=== PATIENT | female | born 1985 | race Asian ===

== ENCOUNTER 2022-07-30 13:01 | Emergency (ER) | payer OTHER, SELFPAY ==
--- NOTE | 2022-07-30 13:04 | DI.RAD.S_ITS ---
PROCEDURE: XR ANKLE RT MIN 3V INDICATIONS: fall TECHNIQUE: 3 views of the ankle were acquired. COMPARISON: None. FINDINGS: Bones: No acute fractures or dislocations. Remote appearing irregularity can be seen involving the medial malleolus. Ankle mortise is normally aligned. No suspicious bony lesions. The talar dome demonstrates no ofe abnormality. Soft tissues: No tibiotalar joint effusion. Achilles tendon appears normal. IMPRESSION: No acute fracture can be seen. Remote appearing irregularity seen involving the medial malleolus, which is attributed to a remote fracture. Dictated by: Anant Solomon M.D. on 07/30/2022 at 12:36 Approved by: Anant Solomon M.D. on 07/30/2022 at 12:36
[2022-07-30 13:26] VITALS: BP 142/90; PULSE 88; RESP 16; TEMP 36.6; O2SAT 99; BMI 29.2
[2022-07-30] MEDS: ACETAMINOPHEN 325 MG TABLET 975 MG PO (13:57)
--- NOTE | 2022-07-30 13:57 | ED.LOWEXIN ---
HPI - Extremity Injury (Lower) <FERCHO Thakur - Last Filed: 07/30/22 14:10> General Chief Complaint: Extremity Injury, Lower Stated Complaint: rt ankle swelling, fall Time Seen by Provider: 07/30/22 13:43 Source: patient History of Present Illness HPI Narrative: This is a 29-year-old female presents to the emergency department complaining of right ankle swelling and pain after she rolled her ankle on a hike this morning. She takes 100 mg of labetalol b.i.d. for history of hypertension. Denies any other medications. Is not anticoagulated, denies any recent fever, chills or new altered sensation in her lower extremities. States it is painful to bear weight on, has swelling over the lateral aspect of her ankle. She denies any numbness or tingling. Related Data Allergies Allergy/AdvReac Type Severity Reaction Status Date / Time lisinopril Allergy Verified 07/30/22 13:39 nifedipine Allergy Verified 07/30/22 13:39 telmisartan [From Micardis] Allergy Verified 07/30/22 13:39 <Duglas Mandujano DO - Last Filed: 07/31/22 07:14> History of Present Illness HPI Narrative: This is a 37-year-old female presents to the emergency department complaining of right ankle swelling and pain after she rolled her ankle on a hike this morning. She takes 100 mg of labetalol b.i.d. for history of hypertension. Denies any other medications. Is not anticoagulated, denies any recent fever, chills or new altered sensation in her lower extremities. States it is painful to bear weight on, has swelling over the lateral aspect of her ankle. She denies any numbness or tingling. Review of Systems <FERCHO Thakur - Last Filed: 07/30/22 14:10> Review of Systems ROS Unobtainable: All systems reviewed & are unremarkable except as noted in HPI and below Exam <FERCHO Thakur - Last Filed: 07/30/22 14:10> Narrative Exam Narrative: Reviewed vitals signs and nursing notes. General: cooperative, comfortable, in no acute distress, well groomed MSK: moves all extremities, neurovascularly intact, no weakness, normal tone, right ankle with compression wrap on, this was removed, edema notable anterior to the lateral malleolus, no tenderness over medial or lateral malleolus, Achilles tendon, proximal 5th metatarsal, dorsiflexion and plantar extension intact without deficit, denies numbness or tingling, PT and DP pulses are 2+, brisk cap refill, no bony pain with axial load, no midfoot pain, no plantar ecchymosis or open wound Skin: brisk capillary refill, without pallor or erythema Neuro: normal speech and cognition, A&O x3, clear speech Psych: mental status is grossly normal, congruent mood, normal affect, pleasant and cooperative Initial Vital Signs Initial Vital Signs: Vital Signs Temperature 97.8 F 07/30/22 13:26 Pulse Rate 88 07/30/22 13:26 Respiratory Rate 16 07/30/22 13:26 Blood Pressure 142/90 H 07/30/22 13:26 Pulse Oximetry 99 07/30/22 13:26 Oxygen Delivery Method 07/30/22 13:26 <Duglas Mandujano DO - Last Filed: 07/31/22 07:14> Initial Vital Signs Initial Vital Signs: Vital Signs Temperature 97.8 F 07/30/22 13:26 Pulse Rate 88 07/30/22 13:26 Respiratory Rate 16 07/30/22 13:26 Blood Pressure 142/90 H 07/30/22 13:26 Pulse Oximetry 99 07/30/22 13:26 Oxygen Delivery Method 07/30/22 13:26 Procedures <FERCHO Thakur - Last Filed: 07/30/22 14:10> Orthopedic Splinting/Casting Injury #1: Side: right Lower Extremity Injury Location: ankle Lower Extremity Immobilizer: boot orthosis Post splinting neuro exam: intact and no change Post splinting vascular exam: no change Placed by: Nursing Course <FERCHO Thakur - Last Filed: 07/30/22 14:10> Orders Ordered: Discontinued Medications Acetaminophen (Acetaminophen 325 Mg Tablet) 975 mg PO NOW ONE Stop: 07/30/22 13:51 Last Admin: 07/30/22 13:57 Dose: 975 mg Documented By: ARELI Ibuprofen (Ibuprofen 400 Mg Tablet) 800 mg PO NOW ONE Stop: 07/30/22 13:51 Last Admin: 07/30/22 13:58 Dose: 800 mg Documented By: ARELI Vital Signs Vital signs: Vital Signs - 8 hr 07/30/22 13:26 Temperature 97.8 F Pulse Rate 88 Respiratory Rate 16 Blood Pressure 142/90 H Pulse Oximetry 99 Oxygen Delivery Method Room Air <Duglas Mandujano DO - Last Filed: 07/31/22 07:14> Orders Ordered: Discontinued Medications Acetaminophen (Acetaminophen 325 Mg Tablet) 975 mg PO NOW ONE Stop: 07/30/22 13:51 Last Admin: 07/30/22 13:57 Dose: 975 mg Documented By: ARELI Ibuprofen (Ibuprofen 400 Mg Tablet) 800 mg PO NOW ONE Stop: 07/30/22 13:51 Last Admin: 07/30/22 13:58 Dose: 800 mg Documented By: ARELI Vital Signs Vital signs: Vital Signs - 8 hr 07/30/22 13:26 Temperature 97.8 F Pulse Rate 88 Respiratory Rate 16 Blood Pressure 142/90 H Pulse Oximetry 99 Oxygen Delivery Method Room Air MDM - Extremity Injury (Lower) <Jocelyn Herman [facility] - Last Filed: 07/30/22 14:10> Imaging Data Extremity x-ray #1: My Impression: Patient endorses 2 month ago injury to the medial aspect of her right ankle, she is mildly tender over the malleolus with palpation but states it is been consistently that way since she thinks she hurt her ankle much worse 2 months ago. Radiologist's Impression: PROCEDURE:? XR ANKLE RT MIN 3V ? INDICATIONS:? fall ? TECHNIQUE:? 3 views of the ankle were acquired.? ? COMPARISON:? None. ? FINDINGS:? ? Bones:? No acute fractures or dislocations.? Remote appearing irregularity can be seen involving the medial malleolus.? Ankle mortise is normally aligned.? No suspicious bony lesions.? The talar dome demonstrates no ofe abnormality.? ? Soft tissues:? No tibiotalar joint effusion.? Achilles tendon appears normal.? ? ? IMPRESSION:? No acute fracture can be seen. ? Remote appearing irregularity seen involving the medial malleolus, which is attributed to a remote fracture. ? ? ? Dictated by: Anant Solomon M.D. on 07/30/2022 at 12:36 ? ? Approved by: Anant Solomon M.D. on 07/30/2022 at 12:36 ? [facility] Narrative Medical decision making narrative: CC: Right ankle injury This is a 29-year-old female presents to the emergency department complaining of right ankle swelling and pain after she rolled her ankle on a hike this morning. Differential diagnoses include, but are not limited to: Ligamental injury, acute ankle fracture, joint effusion, metatarsal injury, I have reviewed the patient's vital signs and nursing notes as well as prior records if available. My imaging interpretation: Radiology reports states no acute fracture visualized on impression however there is a remote appearing irregularity seen involving the medial malleolus which is attributed to a remote fracture. Patient states she injured her right ankle on the medial aspect 2 months ago and was unable to ambulate on this. Today when she rolled her ankle her injury is on the lateral aspect and there are no acute fractures visualized where she is tender today. Patient was treated with Tylenol and ibuprofen, and an orthopedic walking boot. Patient's symptoms improved over duration of stay with above-stated therapies. Social considerations that may affect disposition: [facility] Shared decision making: Due to patient's remote injury 2 months ago, encouraged her to follow-up with [facility] for referral to Orthopedic for further evaluation, to stay in the walking boot as long she is ambulating, elevate it frequently, ice and take Tylenol and ibuprofen as needed for her pain. Patient is in agreement with this plan, she does not have any sensation changes, weakness, is able to ambulate without difficulty in her walking boot. Disposition: see below, along with detailed discharge instructions that have been reviewed with the patient as well as indications for ED re-evaluation and additional outpatient follow-up. Questions are addressed and there is agreement with the plan and for follow-up. Patient is appropriate for outpatient management. MIPS: This encounter doesn't have any diagnosis associated with MIPS criteria. I, FERCHO Saleh, personally performed the services described in the documentation, and it accurately records my words and actions. I collaborated with the ED attending physician for FENG level 2, 3, and some level 4s as appropriate. Discharge Plan Departure Patient Disposition: Home Clinical Impression: Ankle sprain and strain Instructions: Ankle Sprain Activity Restrictions/Additional Instructions: *You have been diagnosed with an ankle sprain without evidence of fracture or joint effusion on x-ray. Please use the walking boot as needed to bear weight on, elevate this as much as possible over the next 3-5 days to discourage swelling, may use an Gianfranco bandage or compression wrap like you have or compression sock to help mitigate edema. Take 600 mg of ibuprofen and 650 mg of Tylenol every 6 hours and ice this frequently today and tomorrow. Follow-up with [facility] if you have ongoing pain beyond 1-2 weeks. If you have persistent symptoms, please follow-up with [facility] for another evaluation. I hope this feels better soon. *What to do: *Please continue to take your regular medications as directed. [ ] New medication prescriptions sent to your pharmacy: [ ] [ ] New medication written as a paper prescription [x ] No new medications given *Please follow up with your primary care provider in 2-3 days, call for an appointment. Let them know you were seen in the Emergency Department and that we asked that you be seen for follow-up. We will electronically transmit a record of today's note if your PCP is in our system *If you do not have a primary care provider please contact [phone] to establish care with one of [facility] primary care providers. *Return to Emergency Department if you should have any new, worsening, or concerning symptoms, such as [fever greater than 101F, chills, worsening pain, persistent vomiting or other bothersome symptoms]. Referrals: [facility] [Provider Group] [facility] [Provider Group] [facility] [Provider Group] Stand Alone Forms: Patient Portal/API <Duglas Mandujano, - Last Filed: 07/31/22 07:14> [facility] ED Attending Suzanne Attestation: I was immediately available in the department for consultation. Documentation has been reviewed. I agree with assessment and plan.
[2022-07-30] MEDS: IBUPROFEN 400 MG TABLET 800 MG PO (13:58)
[2022-07-30 14:14] VITALS: BP 128/76; PULSE 85; RESP 18; O2SAT 98
== END 2022-07-30 14:15 | disposition home or self-care (01) ==
PROVIDERS: Emergency Provider Nurse Practitioner Critical Care Medicine
DX: S93.401A Sprain of unspecified ligament of right ankle, initial encounter (principal); S96.911A Strain of unspecified muscle and tendon at ankle and foot level, right foot, initial encounter; X50.1XXA Overexertion from prolonged static or awkward postures, initial encounter
CPT/HCPCS: 73610; 99283